=== PATIENT | female | born 1930 | race Caucasian/White ===

== ENCOUNTER 2017-11-16 14:57 | Outpatient (CLI) | payer MEDICARE, MEDICAID ==
--- NOTE | 2017-11-16 17:38 | RAD ---
RIGHT INDEX FINGER THREE VIEWS: INDICATIONS: History of infected right finger. FINDINGS: There are prominent periarticular and central erosive changes involving the IP joints of both the rig ht index finger and the right long finger. There is prominent soft tissue swelling surrounding the r ight index finger DIP joint with moderate soft tissue swelling involving the right long finger DIP antonia int. There is mild osteoarthritic change involving the PIP joint of the index and long finger. No r adiopaque foreign body is evident. IMPRESSION: Prominent central and periarticular erosive change involving both the index and long finger distal in terphalangeal joints, with associated soft tissue swelling. This is much more prominent and advanced , involving the right index finger distal interphalangeal joint. Although septic arthritis could ind uce a finding such as this, an inflammatory arthropathy, such as related to psoriatic arthritis, coul d also produce a similar finding. An aggressive, erosive osteoarthropathy could also produce a simil ar finding. Gout could also produce a similar finding. POS: CATRINAH
== END 2017-11-16 14:58 | disposition home or self-care (01) ==
LOC: BICRAD 14:57
PROVIDERS: ATTEND Nurse Practitioner Family
DX: L08.9 Local infection of the skin and subcutaneous tissue, unspecified (principal); M79.89 Other specified soft tissue disorders
CPT/HCPCS: 87070; 87077; 87186; 87205

== ENCOUNTER 2017-11-17 15:00 | Emergency (ER) | payer MEDICARE, MEDICAID ==
[2017-11-17] MEDS ORDERED: Bacitracin Zinc 1 Packet ONE (16:19)
== END 2017-11-17 16:21 | disposition home or self-care (01) ==
LOC: ERS 15:00
DX: M19.041 Primary osteoarthritis, right hand (principal); I10 Essential (primary) hypertension; E03.9 Hypothyroidism, unspecified; E78.00 Pure hypercholesterolemia, unspecified; F41.9 Anxiety disorder, unspecified; Z79.899 Other long term (current) drug therapy
CPT/HCPCS: 99284

== ENCOUNTER 2018-02-15 10:26 | Emergency (ER) | payer MEDICARE, MEDICAID ==
[2018-02-15 12:30] LABS: #Basophils 0.1 thou/uL (0.0-0.2); #Eosinphils 0.3 thou/uL (0.0-0.7); #Lymphocytes 1.9 thou/uL (1.20-3.40); #Monocytes 0.7 thou/uL (0.11-0.59); #Neutrophils 6.9 thou/uL (1.40-6.50); %Basophils 0.6 % (0.0-1.0); %Eosinophils 2.8 % (0.0-10.0); %Lymphocytes 19.7 % (21.0-51.0); %Monocytes 6.9 % (0.0-10.0); Mean Corpuscular HGB CONC 34.1 g/dL (32.0-36.0); Mean Corpuscular Hemoglobin 32.3 pg (27.0-31.0); Mean Corpuscular Volume 94.7 fL (78.0-98.0); Mean Platelet Volume 6.5 fL (7.4-10.4); Platelet Count 256 thou/uL (130-400); RBC Distribution Width 12.8 % (11.5-14.5); Red Blood Cell (RBC) Count 3.39 mill/uL (4.20-5.40); White Blood Cell (WBC) Count 9.8 thou/uL (4.8-10.8)
--- NOTE | 2018-02-15 12:42 | RAD ---
RIGHT HAND 3 VIEWS: HISTORY: Right hand pain and swelling. FINDINGS: There is complete loss of joint space at the distal interphalangeal joints of the index and middle fi ngers with cortical erosions and prominent osteophytosis. Soft tissue swelling is apparent about the se most greatly involved joints. Much more mild osteoarthritic changes involve the interphalangeal joints and the 1st carpometacarpal joint. Ulna negative variant is noted. 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 POS: CATRINA
[2018-02-15] MEDS ORDERED: Lidocaine 1% (PF) 30 ML VIAL ONE (13:07)
[2018-02-15] MEDS ORDERED: cefTRIAXone\\ROCEPHIN 1 GM VIAL ONE (13:07)
== END 2018-02-15 13:20 | disposition home or self-care (01) ==
LOC: ERS 10:26
DX: M19.041 Primary osteoarthritis, right hand (principal); L03.011 Cellulitis of right finger; I10 Essential (primary) hypertension; E03.9 Hypothyroidism, unspecified; F41.9 Anxiety disorder, unspecified
CPT/HCPCS: 36415; 85025; 96372; J0696; J2001

== ENCOUNTER 2019-02-03 11:26 | Emergency (ER) | payer MEDICARE, MEDICAID ==
[2019-02-03 12:19] LABS: #Eosinphils 0.1 thou/uL (0.0-0.7); #Lymphocytes 2.4 thou/uL (1.20-3.40); #Monocytes 0.7 thou/uL (0.11-0.59); #Neutrophils 5.7 thou/uL (1.40-6.50); %Eosinophils 1.7 % (0.0-10.0); %Lymphocytes 27.1 % (21.0-51.0); %Monocytes 7.6 % (0.0-10.0); %Neutrophils 63.6 % (42.0-75.0); Hemoglobin 10.4 g/dL (12.0-16.0); Mean Corpuscular Hemoglobin 31.5 pg (27.0-31.0); Mean Corpuscular Volume 95.5 fL (78.0-98.0); Mean Platelet Volume 7.8 fL (7.4-10.4); Platelet Count 204 thou/uL (130-400); RBC Distribution Width 13.7 % (11.5-14.5); Red Blood Cell (RBC) Count 3.29 mill/uL (4.20-5.40)
--- NOTE | 2019-02-03 12:23 | RAD ---
PORTABLE CHEST: Date: 02/03/19 PROVIDED CLINICAL HISTORY: None. FINDINGS: No comparisons. The cardiac silhouette appears enlarged, which may be at least partially on the basis of portable roshni hnique. Vascular calcification is noted. No focal consolidation, pleural fluid, or pneumothorax appar ent. IMPRESSION: 1. Atherosclerosis. 2. No evidence for an acute cardiopulmonary process. POS: OFF
[2019-02-03 12:31] LABS: ALT (SGPT) 19 U/L (8-55); AST (SGOT) 13 U/L (5-34); Albumin 3.6 g/dL (3.4-4.8); Alkaline Phosphatase 47 U/L (40-110); Anion Gap 14 mmol/L (10-20); BUN (Urea Nitrogen) 42 mg/dL (9.8-20.1); Bilirubin, Total 0.7 mg/dL (0.2-1.2); Calc. Creatinine Clearance 0 mL/min (70-130); Carbon Dioxide 23 mmol/L (23-31); Chloride 102 mmol/L (98-107); Estimated GFR-MDRD 24; Globulin 2.3 g/dL (2.4-3.5); Glucose 97 mg/dL (83-110); Protein, Total 5.9 g/dL (6.0-8.3); Sodium 135 mmol/L (136-145)
== END 2019-02-03 15:40 | disposition home or self-care (01) ==
LOC: ERS 11:26
DX: R55 Syncope and collapse (principal); R00.1 Bradycardia, unspecified; R42 Dizziness and giddiness; I10 Essential (primary) hypertension; E03.9 Hypothyroidism, unspecified; M10.9 Gout, unspecified; E78.00 Pure hypercholesterolemia, unspecified; F41.9 Anxiety disorder, unspecified; Z79.899 Other long term (current) drug therapy
CPT/HCPCS: 36415; 71045; 80053; 84484; 85025; 93005; 94760; 96360